=== PATIENT | female | born 1980 | race Two or more races ===

== ENCOUNTER 2024-12-22 09:50 | Emergency (ER) | payer OTHER ==
[~2024-12-22] VITALS: Ht 162.6 cm; Wt 59.0 kg
[~2024-12-22 09:50] MED LIST: KEFLEX500 MG PO
[2024-12-22] MEDS ORDERED: KETOROLAC TROMETHAMINE 30 MG VIAL IV ONE (11:00)
[2024-12-22] MEDS ORDERED: LABETALOL HCL 20MG/4ML SYRINGE IV ONE ×2 (11:00→14:45)
[2024-12-22] MEDS ORDERED: KETOROLAC TROMETHAMINE 30 MG VIAL ONE (11:14)
[2024-12-22 12:00] LABS: BASO % 1.0 % (0.1-1.2); EOS # 0.06 (0.04-0.54); EOS % 1.0 % (0.7-7.0); LYMPH # 1.35 (1.18-3.74); LYMPH % 23.2 % (19.3-53.1); MEAN PLATELET VOLUME 10.50 fl (9.4-12.4); MONO # 0.44 (0.24-0.82); MONO % 7.6 % (4.7-12.5); NEUT # 3.89 (1.56-6.13); NEUT % 67.0 % (34.0-71.1); RED CELL DISTRIBUTION WIDTH 16.9 % (11.6-14.4)
[2024-12-22 12:04] LABS: URINE APPEARANCE Clear; URINE BILIRRUBIN Negative (NEGATIVE); URINE BLOOD Small; URINE COLOR Yellow; URINE GLUCOSE Negative (NEGATIVE); URINE KETONE Trace (NEGATIVE); URINE LEUKOCYTE Negative; URINE NITRATE Negative; URINE PROTEIN Negative (NEGATIVE); URINE UROBILINOGEN 0.2 E.U./dl
[2024-12-22 12:07] LABS: URINE BACTERIA 277.2 uL (0.0-1933); URINE EPITHELIAL CELLS 16.6 uL (0.0-38.8); URINE RBC 8.6 uL (0.0-20.8); URINE WBC 16.9 uL (0.0-23.2)
[2024-12-22 12:25] LABS: URINE CAST 0.00 uL (0.0-1.40)
[2024-12-22 12:33] LABS: ALT/SGPT 25.0 U/L (12-78); AST/SGOT 22.0 U/L (15-37); BILIRUBIN TOTAL 0.27 mg/dL (0.3-1.2); BUN CREA RATIO 17.0 (7.0-25.0); CREATININE SERUM 0.64 mg/dL (0.55-1.02); GFR 100.35; GLOBULINA 3.6 G/DL (2.4-3.5); GLUCOSE FASTING 108.0 mg/dL (65-100); OSMOLALITY SERUM 287.0 MOSM/KG (275-295)
[2024-12-22] MEDS ORDERED: LABETALOL HCL 100 MG/20 ML ML ONE (15:38)
== END 2024-12-22 17:14 | disposition home or self-care (01) ==
LOC: ER 09:50
PROVIDERS: Preventive Medicine Public Health & General Preventive Medicine
DX: R51.9 Headache, unspecified (principal)